=== PATIENT | female | born 1990 | race Asian ===

== ENCOUNTER 2019-01-13 07:54 | Emergency (ER) | payer OTHER ==
[2019-01-13 08:02] VITALS: TEMP 97.8; BMI 34.7
[2019-01-13] MEDS ORDERED: SODIUM CHLORIDE 1,000 ML IV STA (08:23)
[2019-01-13] MEDS ORDERED: ONDANSETRON 4 MG/2 ML VIAL IVPUSH ONE (08:23)
[2019-01-13] MEDS ORDERED: KETOROLAC TROMETHAMINE 30 MG/1 ML VIAL IVPUSH ONE (08:23)
[2019-01-13] MEDS ORDERED: PANTOPRAZOLE SODIUM 40 MG in SODIUM CHLORIDE 100 ML IVPB ONE (08:26)
--- NOTE | 2019-01-13 08:31 | PDOC ---
*Physical Exam - Vital Signs Last Vital Signs Temp Pulse Resp BP Pulse Ox 97.8 F 72 18 159/70 100 01/13/19 07:58 01/13/19 07:58 01/13/19 07:58 01/13/19 07:58 01/13/19 07:58 ED Treatment Course - LABORATORY CBC & Chemistry Diagram: 01/13/19 09:34 01/13/19 09:34 Medical Decision Making - Medical Decision Making 01/13/19 08:31 Ms Sibley is a 28 yo F presenting to the ER with complaints of epigastric pain associate nausea vomiting and diarrhea x a few days s/p visit to [place] No fevers or chills Pt seen by Midlevel Provider under my direct supervision Ancillary studies reviewed I agree with plan as outlined by Midlevel Provider 01/13/19 10:15 *DC/Admit/Observation/Transfer Diagnosis at time of Disposition: Epigastric abdominal pain - Discharge Dispostion Disposition: HOME Condition at time of disposition: Improved - Prescriptions Prescriptions: Ondansetron HCl [Zofran] 4 mg PO TID PRN #12 tablet PRN Reason: Nausea And/Or Vomiting Pantoprazole Sodium [Protonix] 40 mg PO DAILY #7 tablet.dr - Referrals Referrals: Merle Wick [Primary Care Provider] - - Patient Instructions Printed Discharge Instructions: DI for Epigastric Pain Additional Instructions: Please follow bland diet for the next 48 hours. Please take protonix starting tomorrow since you were given a dose here and may take Zofran as needed for nausea. If symptoms worsen despite above recommendations please return to the ED. Otherwise follow up with her doctor. - Post Discharge Activity Forms/Work/School Notes: Back to Work
[2019-01-13] MEDS ORDERED: KETOROLAC TROMETHAMINE 30 MG/1 ML VIAL ONE (08:40)
[2019-01-13] MEDS ORDERED: PANTOPRAZOLE SODIUM 40 MG VIAL ONE (08:40)
[2019-01-13] MEDS ORDERED: ONDANSETRON 4 MG/2 ML VIAL ONE (08:40)
--- NOTE | 2019-01-13 09:03 | PDOC ---
History of Present Illness - General Chief Complaint: Pain Stated Complaint: ABD PAIN Time Seen by Provider: 01/13/19 08:22 History Source: Patient Exam Limitations: No Limitations - History of Present Illness Travel History: No Initial Comments: 01/13/19 08:52 28-year-old female presents to ED with complaints of epigastric pain associate nausea vomiting diarrhea for the past few days. Patient denies fever, chills, irregular menses, urinary complaints, or recent illness. Patient does state was in [place] last week but became sick after returning 2 days later. Timing/Duration: reports: changing over time Quality: reports: mild, cramping, sharpness Abdominal Pain Onset Location: reports: epigastric Pain Radiation: reports: no radiation Activities at Onset: reports: none Aggravating Factors: improves with: None Alleviating Factors: improves with: None Past History - Travel Traveled outside of the country in the last 30 days: No Close contact w/someone who was outside of country & ill: No - Past Medical History Allergies/Adverse Reactions: Allergies Allergy/AdvReac Type Severity Reaction Status Date / Time No Known Allergies Allergy Verified 01/13/19 08:02 Home Medications: Ambulatory Orders NK [No Known Home Medication] 01/13/19 - Suicide/Smoking/Psychosocial Hx Smoking History: Never smoked Have you smoked in the past 12 months: No Information on smoking cessation initiated: No Hx Alcohol Use: No Drug/Substance Use Hx: No Patient Lives Alone: No Lives with/in: parents Review of Systems - Review of Systems Able to Perform ROS?: No Is the patient limited Sami proficient: No Constitutional: No: Symptoms Reported, Loss of Appetite, Weakness HEENTM: No: Symptoms Reported Respiratory: No: Symptoms reported Cardiac (ROS): No: Symptoms Reported ABD/GI: Yes: Diarrhea, Nausea, Vomiting. No: Indigestion : No: Symptoms Reported Musculoskeletal: No: Symptoms Reported Integumentary: No: Symptoms Reported Neurological: No: Symptoms reported Endocrine: No: Symptoms Reported Hematologic/Lymphatic: No: Symptoms Reported *Physical Exam - Vital Signs Last Vital Signs Temp Pulse Resp BP Pulse Ox 97.8 F 72 18 159/70 100 01/13/19 07:58 01/13/19 07:58 01/13/19 07:58 01/13/19 07:58 01/13/19 07:58 - Physical Exam General Appearance: Yes: Nourished, Appropriately Dressed. No: Apparent Distress HEENT: positive: EOMI, YOLETTE, TMs Normal, Pharynx Normal. negative: Pale Conjunctivae Neck: positive: Supple Respiratory/Chest: positive: Lungs Clear, Normal Breath Sounds. negative: Respiratory Distress, Accessory Muscle Use Cardiovascular: positive: Regular Rhythm, Regular Rate. negative: Murmur Gastrointestinal/Abdominal: positive: Soft, Tenderness (epigastric) Musculoskeletal: negative: CVA Tenderness Extremity: negative: Pedal Edema Integumentary: positive: Normal Color, Warm, Moist Neurologic: positive: Motor Strength 5/5 (ambulatory) ED Treatment Course - LABORATORY CBC & Chemistry Diagram: 01/13/19 09:34 01/13/19 09:34 Medical Decision Making - Medical Decision Making 01/13/19 09:01 CC: n/v/d upper abd pain Exam: epigastric tenderness, vss Plan: labs, urine, ivf, meds 01/13/19 11:04 Laboratory Tests 01/13/19 01/13/19 01/13/19 08:42 09:34 09:34 WBC Cancelled 8.6 Hgb Cancelled Sodium 139 Potassium 4.0 Chloride 106 Carbon Dioxide 30 Anion Gap 3 L BUN 11.3 Creatinine 0.7 Random Glucose 102 Calcium 8.5 Magnesium 1.8 Total Bilirubin 0.5 ALT 21 Alkaline Phosphatase 46 Total Protein 6.5 Albumin 3.6 Lipase 164 Pt states feeling better. Will discharge home with zofran. *DC/Admit/Observation/Transfer Diagnosis at time of Disposition: Epigastric abdominal pain - Discharge Dispostion Disposition: HOME Condition at time of disposition: Improved - Referrals Referrals: Merle Wick [Primary Care Provider] - - Patient Instructions Printed Discharge Instructions: DI for Epigastric Pain Additional Instructions: Please follow bland diet for the next 48 hours. Please take protonix starting tomorrow since you were given a dose here and may take Zofran as needed for nausea. If symptoms worsen despite above recommendations please return to the ED. Otherwise follow up with her doctor. - Post Discharge Activity Forms/Work/School Notes: Back to Work
[2019-01-13 09:07] LABS: URINE APPEARANCE CLOUDY; URINE BILIRUBIN NEGATIVE (NEGATIVE); URINE COLOR YELLOW; URINE GLUCOSE (UA) NEGATIVE (NEGATIVE); URINE KETONE TRACE (NEGATIVE); URINE LEUK ESTERASE NEGATIVE (NEGATIVE); URINE NITRITE NEGATIVE (NEGATIVE); URINE PROTEIN NEGATIVE (NEGATIVE); URINE UROBILINOGEN 0.2 mg/dL (0.2-1.0)
[2019-01-13 09:11] LABS: HCG,QUALITATIVE URINE Negative
[2019-01-13 09:50] LABS: BASO % 0.4 % (0-2.0); EOS % 0.7 % (0-4.5); HEMATOCRIT 37.9 % (32.4-45.2); HEMOGLOBIN 12.9 GM/dL (10.7-15.3); MCH 31.2 pg (25.7-33.7); MCHC 34.1 g/dl (32.0-36.0); MEAN CELL VOLUME 91.5 fl (80-96); MEAN PLT VOLUME 7.7 fl (7.5-11.1); MONO % 4.3 % (3.8-10.2); NEUT % 71.6 % (42.8-82.8); PLATELET COUNT 235 K/MM3 (134-434); RBC 4.14 M/mm3 (3.60-5.2); RDW 12.8 % (11.6-15.6); WHITE BLOOD COUNT 8.6 K/mm3 (4.0-10.0)
[2019-01-13 10:23] LABS: ALBUMIN 3.6 g/dl (3.4-5.0); BILIRUBIN,TOTAL 0.5 mg/dL (0.2-1); BLOOD UREA NITROGEN 11.3 mg/dL (7-18); CALCIUM 8.5 mg/dL (8.5-10.1); CREATININE 0.7 mg/dL (0.55-1.3); TOT PROT 6.5 g/dl (6.4-8.2)
[2019-01-13 10:57] LABS: MAGNESIUM 1.8 mg/dL (1.8-2.4)
[2019-01-13 11:25] VITALS: BP 145/90; PULSE 61
== END 2019-01-13 11:25 | disposition home or self-care (01) ==
LOC: JER 07:54
PROC: 3E033GC Introduction of Other Therapeutic Substance into Peripheral Vein, Percutaneous Approach (ICD-10-PCS; principal; 2019-01-13)
PROC: 3E0333Z Introduction of Anti-inflammatory into Peripheral Vein, Percutaneous Approach (ICD-10-PCS; 2019-01-13)
PROC: 3E033GC Introduction of Other Therapeutic Substance into Peripheral Vein, Percutaneous Approach (ICD-10-PCS; 2019-01-13)
DX: R10.13 Epigastric pain (principal)
CPT/HCPCS: 36415; 80053; 81003; 83690; 83735; 84703; 85025; 99283-25; J7030